=== PATIENT | female | born 1940 | race Caucasian/White ===

== ENCOUNTER → 2017-03-16 11:34 | Outpatient (CLI) | payer MEDICARE, OTHER ==
[2016-03-11 13:54] VITALS: BMI 26.6
[~2017-03-16 11:34] MED LIST: AMBIEN10 MG PO; ASPIRIN325 MG PO; CALCIUM 600+D T1 TA1 PO; CO Q-10100 MG PO; EC-NAPROSYN500 MG PO; FISH OIL 1,2001 CAP PO; FUROSEMIDE40 MG PO; METOPROLOL TAR100 M1; MOBIC7.5 MG PO; MULTIPLE VITAMI1 TA1 PO; MYSOLINE 50 MG50 MG PO; NIACIN500 MG PO; OMEPRAZOLE40 MG PO; PLAVIX75 MG PO; PREMARIN45 GM VG; ZOCOR40 MG PO
== END | disposition home or self-care (01) ==
LOC: D.CT 11:34
DX: S09.90XA Unspecified injury of head, initial encounter (principal); X58.XXXA Exposure to other specified factors, initial encounter; Y93.89 Activity, other specified; Y92.89 Other specified places as the place of occurrence of the external cause

== ENCOUNTER → 2017-05-10 09:00 | Outpatient (CLI) | payer MEDICARE, OTHER ==
[2016-03-11 13:54] VITALS: BMI 26.6
== END | disposition home or self-care (01) ==
LOC: D.RAD 09:00
DX: K21.9 Gastro-esophageal reflux disease without esophagitis (principal)

== ENCOUNTER → 2017-05-22 15:00 | Outpatient (CLI) | payer MEDICARE, OTHER ==
[2016-03-11 13:54] VITALS: BMI 26.6
== END | disposition home or self-care (01) ==
LOC: D.CT 15:00
DX: R51 Headache (principal)